=== PATIENT | male | born 1960 | race Hispanic/Latino ===

== ENCOUNTER 2018-10-15 08:15 | Inpatient (IN) | payer SELFPAY ==
[2018-10-15] MEDS ORDERED: Ondansetron ODT 4 MG TAB SL PRN (09:00)
[2018-10-15] MEDS ORDERED: Acetaminophen 325 MG TAB PO PRN (09:00)
[2018-10-15] MEDS ORDERED: Lactated Ringer's 1,000 ML IV SCH (09:00)
[2018-10-15] MEDS ORDERED: Ondansetron PF 4 MG/2 ML Vial IVP PRN (09:00)
[2018-10-15] MEDS ORDERED: Lorazepam 2 MG/ML VIAL ONE ×2 (09:36→12:01)
[2018-10-15] MEDS ORDERED: Multivitamins, Adult 10 ML, Folic Acid 1 MG, Thiamine HCl 100 MG in Dextrose 5 %-0.45 %... IV SCH (13:28)
[2018-10-15] MEDS ORDERED: Labetalol HCl 100 MG/20 ML VIAL SLOW IVP PRN (13:28)
[2018-10-15] MEDS ORDERED: Lorazepam 2 MG/ML VIAL SLOW IVP SCH (14:00)
[2018-10-15 14:08] LABS: Iron 57 ug/dL (65-175); Iron Binding Capacity, Total 379 mcg/dL (261-462)
[2018-10-15] MEDS ORDERED: Lorazepam 2 MG/ML VIAL SLOW IVP PRN ×2 (14:30→23:30)
[2018-10-15 14:55] LABS: Folate (Folic Acid) 5.1 ng/mL (7.0-31.4)
[2018-10-15] MEDS: Diltiazem 125 MG in Sodium Chloride 0.9% 100 ML IVPB SCH (17:45)
--- NOTE | 2018-10-15 18:59 | HP ---
PRIMARY CARE PHYSICIAN: None. CHIEF COMPLAINT: The patient has been passing out. HISTORY OF PRESENT ILLNESS: The history of present illness is taken from the patient's who is at the bedside as the patient is currently confused and unable to give a history. The patient's does not live with the patient as they are and she did not have a first-hand account of what is happening with the patient. According to her, the patient lives with friends and they called her after the patient was falling. She says they called her up and said, "oh he is falling again, he is falling again" and they brought him to the emergency room in [place] where apparently he had what appears to be a withdrawal seizure as he does have a history of alcoholism. He was also noted to be anemic and in atrial fibrillation with RVR and he was transfused and then sent over to our facility for further evaluation. The only other information they have is that he did admit that his chest was hurting a couple of days ago and that he was having trouble hearing and his vision was blurry, but otherwise no other history is obtainable. REVIEW OF THE SYSTEMS: Unobtainable as the patient is confused. PAST MEDICAL HISTORY: Heavy drinking and alcoholism. PAST SURGICAL HISTORY: No history of any previous surgeries. ALLERGIES: NO KNOWN DRUG ALLERGIES. SOCIAL HISTORY: He has a history of alcohol abuse. His says that he wakes up in the morning and starts drinking at 6:00 a.m. and drinks throughout the day. They are not really sure exactly what he drinks other than beer and some whiskey. Denies any alcohol use. He is , but his lives in a different city and they are . CODE STATUS: Full code. FAMILY HISTORY: Unknown. CURRENT MEDICATIONS: None. PHYSICAL EXAMINATION: GENERAL: The patient is a bit confused. He is disoriented. He appears slightly agitated. He is well developed and well nourished. VITAL SIGNS: Blood pressure was 105/72, heart rate 110, respiratory rate of 16, temperature was 100.0. HEENT: His pupils are equal, round, and reactive. Extraocular muscles are intact. Sclerae are anicteric, but pale. Throat, there is no erythema, no exudates. NECK: No adenopathy. No bruits. LUNGS: Clear to auscultation. There is no wheezing, no rales, and no rhonchi. CARDIOVASCULAR: He had a normal S1, S2. However, the heart rate is irregular, slightly tachycardic. ABDOMEN: Obese, it is soft. It is nontender and nondistended. Positive for bowel sounds. There is no rebound, no guarding, no organomegaly. EXTREMITIES: He has trace edema. There is no calf tenderness. NEUROLOGIC: Again, it is very difficult to assess. He is unable to follow commands. He is oriented to person only and he is moving all of his extremities. SKIN AND INTEGUMENT: He does have kind of bouncy appearance to the skin, 1+ edema, but there is no significant rash. LABORATORY DATA: When he initially presented at the emergency room in [place], his hemoglobin was 7.7, and his white blood cell count was 3.5, platelet count was 34,000. His sodium was 133, potassium 2.6, chloride is 94, CO2 is 18, BUN less than 4, creatinine 0.78, glucose is 185. Urinalysis was negative. Urine drug screen was also negative. His plasma alcohol level was 262 on presentation. He had a CT scan of the brain, which was negative for any acute intracranial process and this was also reviewed by me. He also had a chest x-ray, in which his heart size was normal. There were no infiltrates and no effusions. On his EKG, it was atrial fibrillation with rapid ventricular response. The heart rate is in the 130s. ASSESSMENT: This is a 58-year-old gentleman who was brought to the emergency room after he was falling at home. The full details of which are unobtainable as the was not present during that time and she had gotten the information secondhand. 1. Atrial fibrillation with rapid ventricular response. Currently, he is on a Cardizem drip. We will go ahead and continue that as well as obtain an echocardiogram and likely we will consult Cardiology. However, I suspect this is likely alcohol related. 2. Alcohol abuse with alcohol withdrawal. He will be placed on the ASE protocol as well as giving him some scheduled Ativan. Should his withdrawal symptoms become more severe, which is highly probable, he may need to be placed in the IMCU or the ICU and treated more aggressively. I did explain this to the family to make them aware. 3. Anemia. This appears to be a microcytic anemia. We will need to check for stool occult blood. Check iron studies as well as a B12 and folic acid. If this is nutritional, then we will supplement. However, if it appears to be a blood loss anemia, then GI consult may be warranted. For the time being, since it is a microcytic anemia, we will place him on a proton pump inhibitor. It is noted that there is no history of any evidence of any bleeding and he has no history of any known liver disease. Otherwise, he will be placed on thiamine and folic acid. Further recommendations are to follow. Job ID: [id number]
[2018-10-16] MEDS: Lorazepam 2 MG/ML VIAL SLOW IVP PRN ×21 (03:13→23:33)
[2018-10-16 05:10] LABS: Anion Gap 12 mmol/L (10-20); BUN (Urea Nitrogen) Less than 4 mg/dL (8.4-25.7); Calc. Creatinine Clearance 136 mL/min (70-130); Calcium 8.5 mg/dL (7.8-10.44); Carbon Dioxide 28 mmol/L (22-29); Chloride 94 mmol/L (98-107); Estimated GFR-MDRD Greater than 90; Glucose 91 mg/dL (70-105); Sodium 131 mmol/L (136-145)
[2018-10-16 05:13] LABS: Potassium 2.5 mmol/L (3.5-5.1)
[2018-10-16 05:27] LABS: #Lymphocytes 0.5 thou/uL (1.20-3.40); #Monocytes 0.4 thou/uL (0.11-0.59); #Neutrophils 2.7 thou/uL (1.40-6.50); %Eosinophils 0.7 % (0.0-10.0); %Lymphocytes 13.8 % (21.0-51.0); %Monocytes 11.6 % (0.0-10.0); %Neutrophils 72.9 % (42.0-75.0); Hemoglobin 9.3 g/dL (14.0-18.0); Hypochromia SLIGHT = 6-15 cells (100X) (0-5/hpf); MDiff Complete? YES; Mean Corpuscular HGB CONC 30.6 g/dL (32.0-36.0); Mean Corpuscular Hemoglobin 21.9 pg (27.0-31.0); Mean Corpuscular Volume 71.5 fL (78.0-98.0); Microcytosis SLIGHT = 6-15 cells (100X) (0-5/hpf); Platelet Count 33 thou/uL (130-400); Platelet Morphology Comment Appears Decreased; RBC Distribution Width 21.8 % (11.5-14.5); Red Blood Cell (RBC) Count 4.23 mill/uL (4.70-6.10); White Blood Cell (WBC) Count 3.6 thou/uL (4.8-10.8)
[2018-10-16] MEDS ORDERED: Magnesium 2 GM/NS 0.9% 100 ML 2 GM in Premix Bag 1 BAG IVPB PRN (06:01)
[2018-10-16] MEDS ORDERED: Potassium Chloride 20 MEQ TAB PO PRN (06:01)
[2018-10-16] MEDS ORDERED: Potassium Chloride 40 MEQ in Premix Bag 1 BAG IVPB PRN (06:01)
[2018-10-16] MEDS ORDERED: Potassium Chloride 40 MEQ in Sodium Chloride 0.9% 250 ML 250 ML IVPB PRN (06:01)
[2018-10-16] MEDS ORDERED: Potassium Phosphate 12 MMOL in Sodium Chloride 0.9% 250 ML 250 ML IV PRN (06:01)
[2018-10-16] MEDS ORDERED: CCU ELECTROLYTE REPLACEMENT PROTOCOL FS PRN (06:01)
[2018-10-16] MEDS ORDERED: Potassium Phosphate 15 MMOL in Sodium Chloride 0.9% 250 ML 250 ML IV PRN (06:01)
[2018-10-16] MEDS ORDERED: Potassium Phosphate 9 MMOL in Sodium Chloride 0.9% 100 ML IVPB PRN (06:01)
[2018-10-16] MEDS ORDERED: Magnesium Oxide 400 MG TAB PO PRN ×2 (06:01)
[2018-10-16] MEDS ORDERED: Potassium Chloride 40 MEQ in Sodium Chloride 0.9% 500 ML IVPB ONE (06:15)
[2018-10-16] MEDS ORDERED: Cyanocobalamin 1000 MCG/ML VIAL IM SCH (10:45)
[2018-10-16] MEDS ORDERED: Magnesium Sulfate 4 GM in Sodium Chloride 0.9% 250 ML 250 ML IVPB SCH (11:00)
[2018-10-16] MEDS: Sodium Chloride 0.9% 1,000 ML IV SCH (11:16)
[2018-10-16] MEDS: Pantoprazole 40 MG VIAL IVP SCH (11:17)
[2018-10-16] MEDS: Potassium Chloride 40 MEQ in Sodium Chloride 0.9% 250 ML 250 ML IVPB SCH ×3 (11:17→19:14)
[2018-10-16] MEDS: Diltiazem 125 MG in Sodium Chloride 0.9% 100 ML IVPB SCH (14:53)
--- NOTE | 2018-10-16 16:26 | PDOC.PN ---
- Subjective Encounter Start Date: 10/16/18 Encounter Start Time: 13:35 Mr. Napier was seen today in follow-up of Alcohol withdrawal and Atrial fibrillation. He is confused, and still has bouts of agitation. - Objective Resuscitation Status - Order Detail: 10/15/18 11:53 Resuscitation Status Routine Resuscitation Status: FULL: Full Resuscitation MAR Reviewed: Yes Vital Signs & Weight: Vital Signs (12 hours) Temp Pulse Resp BP Pulse Ox 10/16/18 16:00 98.1 F 96 18 102/68 100 10/16/18 11:56 98.5 F 94 18 101/65 100 10/16/18 08:00 98.4 F 132 H 20 114/72 100 Weight Weight 175 lb 0.047 oz Result Diagrams: 10/16/18 04:16 10/16/18 04:16 Phys Exam - Physical Examination HEENT: PERRLA Respiratory: no wheezing, no rales, no rhonchi, clear to auscultation bilateral Cardiovascular: RRR, no significant murmur, no rub Gastrointestinal: soft, non-tender, no distention, positive bowel sounds Musculoskeletal: no edema, pulses present Dx/Plan (1) Atrial fibrillation Code(s): I48.91 - UNSPECIFIED ATRIAL FIBRILLATION Status: Acute (2) Alcohol withdrawal Code(s): F10.239 - ALCOHOL DEPENDENCE WITH WITHDRAWAL, UNSPECIFIED Status: Acute (3) Iron deficiency Code(s): E61.1 - IRON DEFICIENCY Status: Acute (4) Anemia Code(s): D64.9 - ANEMIA, UNSPECIFIED Status: Acute (5) Folate deficiency anemia Code(s): D52.9 - FOLATE DEFICIENCY ANEMIA, UNSPECIFIED Status: Acute (6) Hypokalemia Code(s): E87.6 - HYPOKALEMIA Status: Acute (7) Alcohol abuse Code(s): F10.10 - ALCOHOL ABUSE, UNCOMPLICATED Status: Chronic - Plan * AFIB- this is likely related to his alcohol abuse- he is now in sinus- will continue the Cardizem drip for now * Echo results noted * Await Cardiology input * Anemia- this is likely nutritional with iron and folate deficiency- replace, and await stool for occult blood * Alcohol withdrawal- continue Ativan as needed * Hypokalemia- and Hypomagnesemia- replace
--- NOTE | 2018-10-16 16:54 | CON ---
DATE OF CONSULTATION: 10/16/2018 SERVICE: Pulmonary Medicine. HISTORY OF PRESENT ILLNESS: The patient is a 58-year-old male with past medical history significant for heavy alcohol consumption. He is in his usual state of health until about 3 days prior to admission. He started having some onset of chest discomfort and syncopal events. He stopped drinking alcohol. Ultimately , he had some seizures and presented to the emergency department. He was given some Ativan and tucked into the IMCU. He was found to be in atrial fibrillation with a rapid rate. As such, a Cardizem drip was initiated. He has received multiple doses of Ativan. The 2-hour dosing, we are not keeping him. We have intensified this. He cannot provide me any additional elements of the history. He has a coarse tremor, and is speaking in nonsensical terms. He does not speak any Lithuanian and is primarily Burkinan speaking. There are no reports of fevers, chills, or sick contacts recently. He has not had any nausea, vomiting, or diarrhea that we are aware of. He does not have a cough or sputum production. PAST MEDICAL HISTORY: 1. Alcoholism. 2. Atrial fibrillation, paroxysmal. 3. History of seizure, in the setting of alcohol withdrawal. PAST SURGICAL HISTORY: None that we are aware of. SOCIAL HISTORY: Heavy alcohol abuse is present. He drinks beer and whiskey. No tobacco or illicit drug use is noted. He has no exposure to chemicals, dust, asbestos, or tuberculosis that we are aware of. ALLERGIES: NO KNOWN DRUG ALLERGIES. MEDICATIONS: List of his inpatient medications was reviewed and modified. FAMILY HISTORY: Noncontributory. REVIEW OF SYSTEMS: This cannot be obtained because of encephalopathy. PHYSICAL EXAMINATION: VITAL SIGNS: Afebrile, pulse 132, blood pressure 114/72, respirations 20, and saturation 100% on room air. GENERAL: The patient is awake. He is confused. He was previously agitated, but is now minimally sedated. HEENT: Normocephalic and atraumatic. Sclerae white. Conjunctivae pink. Oral mucosa is moist without lesions. LUNGS: Decent air entry. There is no prolonged expiratory phase or wheezing present. No rhonchi or crackles are appreciated. HEART: Tachycardiac. Irregular. ABDOMEN: Soft, nontender, and nondistended. Bowel sounds are positive. MUSCULOSKELETAL: No cyanosis or clubbing. No pitting in the bilateral lower extremities. NEUROLOGIC: Grossly nonfocal. LABORATORY DATA: WBC 3.6, hemoglobin 9.3, platelets 33,000. MCV is 72. Potassium 2.5. Basic metabolic profile is otherwise unremarkable. Magnesium 1.1. Iron is low, and folate is low. B12 falls within the lower limits of normal. Plasma alcohol level is negative. IMAGING STUDIES: 1. Echocardiogram demonstrates underlying atrial fibrillation with normal ejection fraction. Diastology cannot be evaluated because of underlying rhythm. 2. CT of the brain demonstrates no acute intracranial abnormality. 3. Chest x-ray demonstrates no acute cardiothoracic abnormality. ASSESSMENT: 1. Delirium tremens. 2. Seizure secondary to withdrawal from alcohol. 3. Syncope. 4. Chest pain. DISCUSSION AND PLAN: We will check a single troponin. I will replace magnesium and potassium. We will trend both of those levels as well as a phosphorus tomorrow morning. Folate replacement will be initiated. Lactate to be repeated. Pulmonary/Critical Care will continue to follow along with the patient, will need to remain in this location. We are going to intensify Ativan doses. If this fails to hold him, we will move to the ICU and consider him for Precedex infusion. Failing that, he will require intubation. Pulmonary/Critical Care will continue to follow closely. 70 minutes have been devoted to this patient in various activities. I personally reviewed all imaging studies and laboratory data noted within this document. For fifty percent of this time, I was interacting with the patient at the bedside or coordinating care with the care team. For the remainder of the time I was immediately available to the patient in the hospital unit. Job ID: [id number] [facility]
[2018-10-17] MEDS: Lorazepam 2 MG/ML VIAL SLOW IVP PRN ×10 (00:06→16:30)
[2018-10-17] MEDS: Sodium Chloride 0.9% 1,000 ML IV SCH ×3 (01:37→16:43)
[2018-10-17 05:04] LABS: Lactic Acid 1.5 mmol/L (0.5-2.2)
[2018-10-17 05:07] LABS: Anion Gap 14 mmol/L (10-20); BUN (Urea Nitrogen) Less than 4 mg/dL (8.4-25.7); Calc. Creatinine Clearance 145 mL/min (70-130); Calcium 8.6 mg/dL (7.8-10.44); Carbon Dioxide 22 mmol/L (22-29); Chloride 100 mmol/L (98-107); Estimated GFR-MDRD Greater than 90; Glucose 91 mg/dL (70-105); Magnesium 1.9 mg/dL (1.6-2.6); Potassium 3.4 mmol/L (3.5-5.1); Sodium 133 mmol/L (136-145)
[2018-10-17 05:12] LABS: Troponin I 0.015 ng/mL (< 0.028)
[2018-10-17 05:14] LABS: Phosphorus 1.6 mg/dL (2.3-4.7)
[2018-10-17] MEDS ORDERED: Potassium Phosphate 15 MMOL in Sodium Chloride 0.9% 250 ML 250 ML IVPB SCH (07:00)
[2018-10-17] MEDS: Diltiazem 125 MG in Sodium Chloride 0.9% 100 ML IVPB SCH ×2 (07:41→23:39)
[2018-10-17] MEDS: Pantoprazole 40 MG VIAL IVP SCH (09:15)
[2018-10-17] MEDS: Folic Acid 1 MG TAB PO SCH ×2 (09:15→09:20)
[2018-10-17] MEDS: Cyanocobalamin (Vitamin B-12) 1,000 MCG TAB PO SCH ×2 (09:15→09:21)
[2018-10-17 09:27] LABS: #Lymphocytes 0.8 thou/uL (1.20-3.40); #Monocytes 0.6 thou/uL (0.11-0.59); #Neutrophils 6.2 thou/uL (1.40-6.50); %Basophils 0.3 % (0.0-1.0); %Eosinophils 0.3 % (0.0-10.0); %Lymphocytes 10.5 % (21.0-51.0); %Monocytes 7.5 % (0.0-10.0); %Neutrophils 81.4 % (42.0-75.0); Hemoglobin 9.7 g/dL (14.0-18.0); Mean Corpuscular HGB CONC 28.7 g/dL (32.0-36.0); Mean Corpuscular Hemoglobin 21.2 pg (27.0-31.0); Mean Corpuscular Volume 73.7 fL (78.0-98.0); Mean Platelet Volume 10.4 fL (7.4-10.4); Platelet Count 40 thou/uL (130-400); RBC Distribution Width 22.2 % (11.5-14.5); Red Blood Cell (RBC) Count 4.59 mill/uL (4.70-6.10); White Blood Cell (WBC) Count 7.6 thou/uL (4.8-10.8)
[2018-10-17 10:05] LABS: Hypochromia MODERATE=16-30 cells (100X) (0-5/hpf); MDiff Complete? YES; Microcytosis SLIGHT = 6-15 cells (100X) (0-5/hpf); Platelet Morphology Comment Appears Decreased; Polychromasia MODERATE = 3-4 cells (100X) (0-2/hpf)
[2018-10-17] MEDS ORDERED: Lorazepam 2 MG/ML VIAL SLOW IVP PRN ×2 (10:28→10:29)
[2018-10-17] MEDS: Lorazepam 2 MG/ML VIAL SLOW IVP SCH ×4 (11:02→23:39)
--- NOTE | 2018-10-17 16:26 | PDOC.PN ---
- Subjective Encounter Start Date: 10/17/18 Encounter Start Time: 13:25 Mr. Napier appears less agitated and shaky. - Objective Resuscitation Status - Order Detail: 10/15/18 11:53 Resuscitation Status Routine Resuscitation Status: FULL: Full Resuscitation MAR Reviewed: Yes Vital Signs & Weight: Vital Signs (12 hours) Temp Pulse Resp BP Pulse Ox 10/17/18 15:28 98.1 F 100 18 125/80 100 10/17/18 10:49 98.0 F 90 18 121/85 100 10/17/18 08:00 100 10/17/18 07:25 97.0 F L 82 18 107/74 100 Weight Weight 175 lb 0.047 oz I&O: 10/16/18 10/17/18 10/18/18 06:59 06:59 06:59 Intake Total 1521 Balance 1521 Result Diagrams: 10/17/18 04:09 10/17/18 04:09 Phys Exam - Physical Examination HEENT: PERRLA, sclera anicteric Respiratory: no wheezing, no rales, no rhonchi, clear to auscultation bilateral Cardiovascular: RRR, no significant murmur, no rub Gastrointestinal: soft, non-tender, no distention, positive bowel sounds Musculoskeletal: no edema, pulses present Neurological: moves all 4 limbs confused Dx/Plan (1) Atrial fibrillation Code(s): I48.91 - UNSPECIFIED ATRIAL FIBRILLATION Status: Acute (2) Alcohol withdrawal Code(s): F10.239 - ALCOHOL DEPENDENCE WITH WITHDRAWAL, UNSPECIFIED Status: Acute (3) Iron deficiency Code(s): E61.1 - IRON DEFICIENCY Status: Acute (4) Anemia Code(s): D64.9 - ANEMIA, UNSPECIFIED Status: Acute (5) Folate deficiency anemia Code(s): D52.9 - FOLATE DEFICIENCY ANEMIA, UNSPECIFIED Status: Acute (6) Hypokalemia Code(s): E87.6 - HYPOKALEMIA Status: Acute (7) Alcohol abuse Code(s): F10.10 - ALCOHOL ABUSE, UNCOMPLICATED Status: Chronic - Plan * Atrial Fibrillation- he continues in sinus * Alcohol withdrawal- slowly improving- agree with Ativan jason * Anemia- multi-factorial - continue folic acid and vitamin B supplementation, and will add iron * Advance diet as he is able to tolerate * Continue electrolyte replacement .
--- NOTE | 2018-10-17 16:39 | PRG ---
DATE OF SERVICE: 10/17/2018 SERVICE: Pulmonary Medicine. INTERVAL HISTORY: The patient required 15 mg of Ativan over the last 24 hours in order to maintain his calm demeanor. That being said, his heart rate was much improved and his blood pressure is much more stable. His tremors are still present, but less severe. His is suggesting his mentation is actually perked up very nicely. He is still not back to baseline as of now. He cannot provide any additional elements of the history. He is cantankerously not following any significant commands, but he has been noted to move everything. PHYSICAL EXAMINATION: VITAL SIGNS: Afebrile, pulse 100, blood pressure 125/80, respirations 18, and saturation 100% on room air. GENERAL: The patient is awake and alert, in no apparent distress. LUNGS: Excellent air entry without prolonged expiratory phase or wheezing. HEART: Normal rate regular. ABDOMEN: Soft, nontender, and nondistended. Bowel sounds are positive. MUSCULOSKELETAL: No cyanosis or clubbing. No pitting edema in the bilateral lower extremities. NEUROLOGIC: Grossly nonfocal. LABORATORY DATA: WBC 7.6, hemoglobin 9.7, and platelets 40. Sodium 133 and potassium 3.4. Basic metabolic profile is otherwise unremarkable. Phosphorus is 1.6, magnesium 1.9, lactate is 1.5, and troponin 0.015. ASSESSMENT: 1. Delirium tremens. 2. Seizure, secondary to withdrawal from alcohol. 3. Syncope. 4. Chest pain. 5. Atrial fibrillation with RVR, returned to normal sinus rhythm. DISCUSSION AND PLAN: The patient had 50 mg of Ativan in the last 24 hours. We will split that in a half and start Ativan taper over the next several days. His alcohol symptomatology evaluation has improved dramatically. We will leave in the IMCU for an additional 24 hours. We will continue p.r.n. Ativan if necessary. If he does not require much of the p.r.n. medications, he can be considered for transition to the floor in the morning. Pulmonary/Critical Care will continue to follow closely. Job ID: [id number] [facility]
[2018-10-18] MEDS ORDERED: diphenhydrAMINE 50 MG/ML VIAL IVP SCH (01:15)
[2018-10-18] MEDS: Lorazepam 2 MG/ML VIAL SLOW IVP SCH ×6 (04:59→23:35)
[2018-10-18 05:31] LABS: Anion Gap 12 mmol/L (10-20); BUN (Urea Nitrogen) 4 mg/dL (8.4-25.7); Calc. Creatinine Clearance 145 mL/min (70-130); Calcium 9.4 mg/dL (7.8-10.44); Carbon Dioxide 26 mmol/L (22-29); Chloride 98 mmol/L (98-107); Estimated GFR-MDRD Greater than 90; Glucose 86 mg/dL (70-105); Potassium 3.1 mmol/L (3.5-5.1); Sodium 133 mmol/L (136-145)
[2018-10-18 05:34] LABS: Phosphorus 2.9 mg/dL (2.3-4.7)
[2018-10-18] MEDS: Ferrous Sulfate 325 MG TAB PO SCH (07:48)
[2018-10-18] MEDS: Folic Acid 1 MG TAB PO SCH (07:48)
[2018-10-18] MEDS: Cyanocobalamin (Vitamin B-12) 1,000 MCG TAB PO SCH (07:48)
[2018-10-18] MEDS: Pantoprazole 40 MG VIAL IVP SCH (07:51)
--- NOTE | 2018-10-18 08:47 | PDOC.PN ---
- Subjective Encounter Start Date: 10/18/18 Encounter Start Time: 10:59 Mr. Karthikeyan Najera was seen today in follow-up of Alcohol withdrawal, and atrial fibrillation. He continues to be calmer, but still has some confusuion, and periods of agitation. - Objective Resuscitation Status - Order Detail: 10/15/18 11:53 Resuscitation Status Routine Resuscitation Status: FULL: Full Resuscitation MAR Reviewed: Yes Vital Signs & Weight: Vital Signs (12 hours) Temp Pulse Resp BP Pulse Ox 10/18/18 07:38 100 10/18/18 07:24 97.9 F 84 17 123/80 100 10/18/18 04:00 98.0 F 79 14 124/80 100 10/17/18 23:55 98.7 F 96 20 123/87 100 Weight Weight 159 lb 4.8 oz I&O: 10/17/18 10/18/18 10/19/18 06:59 06:59 06:59 Intake Total 1521 1898.7 Balance 1521 1898.7 Result Diagrams: 10/17/18 04:09 10/18/18 04:33 Phys Exam - Physical Examination HEENT: PERRLA Respiratory: no wheezing, no rales, no rhonchi, clear to auscultation bilateral Cardiovascular: RRR, no significant murmur, no rub Gastrointestinal: soft, non-tender, no distention, positive bowel sounds Musculoskeletal: no edema Dx/Plan (1) Atrial fibrillation Code(s): I48.91 - UNSPECIFIED ATRIAL FIBRILLATION Status: Acute (2) Alcohol withdrawal Code(s): F10.239 - ALCOHOL DEPENDENCE WITH WITHDRAWAL, UNSPECIFIED Status: Acute (3) Iron deficiency Code(s): E61.1 - IRON DEFICIENCY Status: Acute (4) Anemia Code(s): D64.9 - ANEMIA, UNSPECIFIED Status: Acute (5) Folate deficiency anemia Code(s): D52.9 - FOLATE DEFICIENCY ANEMIA, UNSPECIFIED Status: Acute (6) Hypokalemia Code(s): E87.6 - HYPOKALEMIA Status: Acute (7) Alcohol abuse Code(s): F10.10 - ALCOHOL ABUSE, UNCOMPLICATED Status: Chronic - Plan * Atrial Fibrillation- he is now in sinus rhythm, and off the cardizem drip * Alcohol withdrawal- continue Ativan jason * Nutrition- continue thiamin, folic acid, and iron supplement, and will add nutritional supplements for caloric support * Continue to replace electrolyes .
[2018-10-18] MEDS ORDERED: Lorazepam 2 MG/ML VIAL SLOW IVP PRN (10:29)
[2018-10-18] MEDS: Sodium Chloride 0.9% 1,000 ML IV SCH (11:25)
[2018-10-18] MEDS: Lorazepam 2 MG/ML VIAL SLOW IVP PRN (12:59)
[2018-10-18] MEDS ORDERED: Potassium Chloride 20 MEQ TAB PO SCH (14:15)
--- NOTE | 2018-10-18 14:43 | PRG ---
DATE OF SERVICE: 10/18/2018 SERVICE: Pulmonary Medicine. INTERVAL HISTORY: The patient is really doing well from a respiratory standpoint. He has not required any significant doses of p.r.n. Ativan over the last 24 hours. One dose of Ativan was actually held because he was sleeping. Otherwise, there is no interval change to his condition. He did transition back into a normal sinus rhythm. PHYSICAL EXAMINATION: VITAL SIGNS: Afebrile, pulse 55, blood pressure 136/49, respirations 18, and saturation 92% on 1.5 L nasal cannula. GENERAL: The patient is awake and alert, in no apparent distress. LUNGS: Decent air entry. There is no prolonged expiratory phase or wheezing present. HEART: Normal rate, regular. ABDOMEN: Soft, nontender, and nondistended. Bowel sounds are positive. MUSCULOSKELETAL: No cyanosis or clubbing. No pitting in the bilateral lower extremities. NEUROLOGIC: Grossly nonfocal. LABORATORY DATA: Potassium 3.1 and sodium 133. Basic metabolic profile is otherwise unremarkable. Creatinine and BUN are both stable. Phosphorus is 2.9 and has returned to the normal limits. Plasma alcohol level is less than 10. ASSESSMENT: 1. Delirium tremens, improving. 2. Seizure, secondary to withdrawal from alcohol. 3. Atrial fibrillation with rapid ventricular response, returned to sinus rhythm. DISCUSSION AND PLAN: I am going to discontinue the Cardizem drip. We will replace the patient's potassium. He can be transitioned to the medical unit. We will continue our Ativan taper. ASE will be followed through time. If he has a significant decline in function, he may need to be transitioned back to the ICU for initiation of Precedex drip, but for the last 24 hours, he has been doing well on his Ativan taper. Job ID: [id number] [facility]
[2018-10-18] MEDS ORDERED: Potassium Chloride 40 MEQ in Sodium Chloride 0.9% 250 ML 250 ML IVPB SCH (15:00)
[2018-10-19] MEDS: Lorazepam 2 MG/ML VIAL SLOW IVP SCH ×4 (03:16→18:16)
[2018-10-19 07:23] LABS: Anion Gap 14 mmol/L (10-20); BUN (Urea Nitrogen) 8 mg/dL (8.4-25.7); Calc. Creatinine Clearance 134 mL/min (70-130); Calcium 9.2 mg/dL (7.8-10.44); Carbon Dioxide 22 mmol/L (22-29); Chloride 98 mmol/L (98-107); Estimated GFR-MDRD Greater than 90; Glucose 83 mg/dL (70-105); Potassium 3.1 mmol/L (3.5-5.1); Sodium 131 mmol/L (136-145)
[2018-10-19 08:11] LABS: Band 10 % (5-11); Eosinophils 2 % (0-10); Hemoglobin 9.5 g/dL (14.0-18.0); Lymphocytes 18 % (21-51); MDiff Complete? YES; Mean Corpuscular HGB CONC 30.4 g/dL (32.0-36.0); Mean Corpuscular Hemoglobin 22.6 pg (27.0-31.0); Mean Corpuscular Volume 74.6 fL (78.0-98.0); Mean Platelet Volume 6.6 fL (7.4-10.4); Monocytes 17 % (0-10); Neutrophil 52 % (42-75); Platelet Count 96 thou/uL (130-400); Platelet Morphology Comment Appears Decreased; Red Blood Cell (RBC) Count 4.18 mill/uL (4.70-6.10); White Blood Cell (WBC) Count 5.1 thou/uL (4.8-10.8)
[2018-10-19] MEDS: Ferrous Sulfate 325 MG TAB PO SCH (09:45)
[2018-10-19] MEDS: Sodium Chloride 0.9% 1,000 ML IV SCH (09:45)
[2018-10-19] MEDS: Pantoprazole 40 MG VIAL IVP SCH (09:45)
[2018-10-19] MEDS ORDERED: Lorazepam 2 MG/ML VIAL SLOW IVP PRN (10:29)
[2018-10-19] MEDS: Folic Acid 1 MG TAB PO SCH (11:33)
[2018-10-19] MEDS: Cyanocobalamin (Vitamin B-12) 1,000 MCG TAB PO SCH (11:33)
[2018-10-19] MEDS ORDERED: Potassium Chloride 20 MEQ TAB PO SCH (12:00)
[2018-10-19] MEDS ORDERED: Magnesium Sulfate 4 GM in Sodium Chloride 0.9% 250 ML 250 ML IVPB SCH (12:30)
--- NOTE | 2018-10-19 13:28 | EKG ---
Test Reason : Blood Pressure : / mmHG Vent. Rate : 114 BPM Atrial Rate : 105 BPM P-R Int : 000 ms QRS Dur : 088 ms QT Int : 338 ms P-R-T Axes : 000 -02 053 degrees QTc Int : 465 ms Atrial fibrillation with rapid ventricular response Nonspecific ST and T wave abnormality , probably digitalis effect Abnormal ECG Confirmed by HAYES DURHAM ([id number]), scientific editor CHIDI SANFORD ([id number]) on 10/19/2018 1:28:26 PM Referred By: Confirmed By:HAYES DURHAM
--- NOTE | 2018-10-19 21:06 | PDOC.PN ---
- Subjective Encounter Start Date: 10/19/18 Encounter Start Time: 12:30 -: non-verbal Patient seen and examined for Alcohol withdrawal. Took PO meds earlier. Follows commands to some extent. No overnight events - Objective Resuscitation Status - Order Detail: 10/15/18 11:53 Resuscitation Status Routine Resuscitation Status: FULL: Full Resuscitation MAR Reviewed: Yes Vital Signs & Weight: Vital Signs (12 hours) Temp Pulse Resp BP BP Pulse Ox 10/19/18 19:53 98.6 F 91 22 H 125/79 100 10/19/18 19:30 125/79 10/19/18 15:35 98.0 F 93 17 111/75 100 10/19/18 11:04 98.0 F 97 16 121/88 99 Weight Weight 159 lb 4.8 oz I&O: 10/18/18 10/19/18 10/20/18 06:59 06:59 06:59 Intake Total 1898.7 600 1650 Balance 1898.7 600 1650 Result Diagrams: 10/20/18 05:16 10/20/18 05:16 Phys Exam - Physical Examination Constitutional: NAD Respiratory: no wheezing, no rhonchi Cardiovascular: RRR, no rub Gastrointestinal: soft, positive bowel sounds Neurological: moves all 4 limbs (with gen tremors) Dx/Plan (1) Alcohol withdrawal Code(s): F10.239 - ALCOHOL DEPENDENCE WITH WITHDRAWAL, UNSPECIFIED Status: Acute Qualifiers: Complication of substance-induced condition: with delirium Qualified Code(s ): F10.231 - Alcohol dependence with withdrawal delirium Comment: and seizures (2) Hypomagnesemia Code(s): E83.42 - HYPOMAGNESEMIA Status: Acute (3) Anemia Code(s): D64.9 - ANEMIA, UNSPECIFIED Status: Acute Comment: s/p 2 units PRBC this admission (4) Atrial fibrillation Code(s): I48.91 - UNSPECIFIED ATRIAL FIBRILLATION Status: Acute Comment: with RVR (5) Hypokalemia Code(s): E87.6 - HYPOKALEMIA Status: Acute (6) Folic acid deficiency Code(s): E53.8 - DEFICIENCY OF OTHER SPECIFIED B GROUP VITAMINS Status: Chronic (7) Other issues per previous notes - Plan cont current plan of care, respiratory therapy, DVT proph w/SCDs Add PPI -: Replace electrolytes -: Cont current meds as below Review of Systems - Review of Systems Other: Cannot obtain due to current mentation. - Medications/Allergies Allergies/Adverse Reactions: Allergies Allergy/AdvReac Type Severity Reaction Status Date / Time No Known Drug Allergies Allergy Verified 10/15/18 14:34 Medications: Current Medications Cyanocobalamin (Vitamin B-12) 1,000 mcg PO DAILY [facility] Last Admin: 10/19/18 11:33 Dose: 1,000 mcg Ferrous Sulfate (Feosol) 325 mg PO QAM-WM [facility] Last Admin: 10/19/18 09:45 Dose: Not Given Folic Acid (Folvite) 1 mg PO DAILY [facility] Last Admin: 10/19/18 11:33 Dose: 1 mg Sodium Chloride (Normal Saline 0.9%) 1,000 mls @ 50 mls/hr IV .Q20H [facility] Last Admin: 10/19/18 09:45 Dose: 1,000 mls Labetalol HCl (Normodyne) 20 mg SLOW IVP Q4H PRN PRN Reason: SBP > 180 and HR >/= 70 Lorazepam (Ativan) 2 mg SLOW IVP Q15M PRN PRN Reason: .AGITATION Last Admin: 10/18/18 12:59 Dose: 2 mg Lorazepam (Ativan) 2 mg SLOW IVP Q8H [facility] Stop: 10/20/18 03:01 Last Admin: 10/19/18 18:16 Dose: 2 mg Pantoprazole Sodium (Protonix) 40 mg IVP DAILY [facility] Last Admin: 10/19/18 09:45 Dose: 40 mg Sodium Chloride (Flush - Normal Saline) 10 ml IVF Q12HR [facility] Last Admin: 10/19/18 20:23 Dose: 10 ml Sodium Chloride (Flush - Normal Saline) 10 ml IVF PRN PRN PRN Reason: Saline Flush Last Admin: 10/18/18 07:51 Dose: 10 ml Thiamine HCl (Thiamine) 100 mg PO DAILY [facility] Last Admin: 10/19/18 11:32 Dose: 100 mg
--- NOTE | 2018-10-19 22:51 | PRG ---
DATE OF SERVICE: 10/19/2018 SUBJECTIVE: Mr. Karthikeyan Najera is calm. He is not tachycardic. OBJECTIVE: GENERAL: He is in no distress. Vital Signs: He is afebrile. Heart rate in the 90s, blood pressure 125/79, respiratory rate is 20, oximetry is 100%. Multiple family members in the room. When I evaluated, I answered all their questions. His oximetry is 99% to 100% on room air. LUNGS: Clear. HEART: Regular rhythm. ABDOMEN: Soft and nontender. EXTREMITIES: No clubbing, cyanosis, or edema. LABORATORY DATA: White count 5.1, hemoglobin 9.5, platelets 96,000. Sodium 131, potassium 3.1, chloride 98, bicarb 22, BUN 8, and creatinine 0.63. IMPRESSION: Status post alcohol withdrawal, clinically stable. I had a long discussion with family about his alcohol use. His family says he drinks beer from sun up to . It has been explained that it is very likely that he will have a relapse of his alcohol abuse. I have suggested consideration of alcoholics anonymous. Family said they will consider this and apparently he has stopped drinking in the past and then gradually restarted and build up to the same previous levels. He tolerated an incredible room amount of benzodiazepines during his withdrawal with no respiratory depression. He is clinically stable at this time with no signs or symptoms of infection. We will continue to monitor him. Job ID: [id number]
[2018-10-20] MEDS: Lorazepam 2 MG/ML VIAL SLOW IVP SCH (04:13)
[2018-10-20 05:46] LABS: Anion Gap 14 mmol/L (10-20); BUN (Urea Nitrogen) 8 mg/dL (8.4-25.7); Calc. Creatinine Clearance 136 mL/min (70-130); Calcium 9.1 mg/dL (7.8-10.44); Carbon Dioxide 20 mmol/L (22-29); Chloride 101 mmol/L (98-107); Estimated GFR-MDRD Greater than 90; Glucose 88 mg/dL (70-105); Magnesium 1.7 mg/dL (1.6-2.6); Potassium 3.7 mmol/L (3.5-5.1); Sodium 131 mmol/L (136-145)
[2018-10-20 05:47] LABS: Phosphorus 3.9 mg/dL (2.3-4.7)
[2018-10-20] MEDS: Sodium Chloride 0.9% 1,000 ML IV SCH (05:57)
[2018-10-20 08:25] LABS: Anisocytosis SLIGHT = 6-15 cells (100X) (0-5/hpf); Band 5 % (5-11); Eosinophils 3 % (0-10); Hemoglobin 9.5 g/dL (14.0-18.0); Hypochromia SLIGHT = 6-15 cells (100X) (0-5/hpf); Lymphocytes 23 % (21-51); MDiff Complete? YES; Mean Corpuscular HGB CONC 29.9 g/dL (32.0-36.0); Mean Corpuscular Hemoglobin 22.6 pg (27.0-31.0); Mean Corpuscular Volume 75.6 fL (78.0-98.0); Mean Platelet Volume 7.4 fL (7.4-10.4); Monocytes 19 % (0-10); Neutrophil 50 % (42-75); Platelet Count 120 thou/uL (130-400); Platelet Morphology Comment Appears Decreased; RBC Distribution Width 23.5 % (11.5-14.5); Red Blood Cell (RBC) Count 4.23 mill/uL (4.70-6.10); Target Cells SLIGHT = 2-5 cells (100X) (0-1/hpf); White Blood Cell (WBC) Count 4.1 thou/uL (4.8-10.8)
[2018-10-20] MEDS: Folic Acid 1 MG TAB PO SCH (09:45)
[2018-10-20] MEDS: Ferrous Sulfate 325 MG TAB PO SCH (09:45)
[2018-10-20] MEDS: Cyanocobalamin (Vitamin B-12) 1,000 MCG TAB PO SCH (09:45)
[2018-10-20] MEDS: Pantoprazole 40 MG VIAL IVP SCH (09:46)
[2018-10-20] MEDS: Lorazepam 2 MG/ML VIAL SLOW IVP PRN ×2 (16:07→22:24)
--- NOTE | 2018-10-20 18:17 | PDOC.PN ---
- Subjective Encounter Start Date: 10/20/18 Encounter Start Time: 18:15 Subjective: Seen and examined lethargic and deconditioned - Objective Resuscitation Status - Order Detail: 10/15/18 11:53 Resuscitation Status Routine Resuscitation Status: FULL: Full Resuscitation Vital Signs & Weight: Vital Signs (12 hours) Temp Pulse Resp BP BP Pulse Ox 10/20/18 15:41 98.5 F 100 20 117/76 100 10/20/18 10:52 98.2 F 90 20 136/83 100 10/20/18 08:00 114/74 10/20/18 07:30 97.7 F 78 20 114/74 100 Weight Weight 162 lb 9 oz I&O: 10/19/18 10/20/18 10/21/18 06:59 06:59 06:59 Intake Total 600 2450 Balance 600 2450 Result Diagrams: 10/20/18 05:16 10/20/18 05:16 Phys Exam - Physical Examination Constitutional: NAD HEENT: PERRLA, moist MMs, sclera anicteric, TM's clear Neck: no nodes, no JVD, supple, full ROM Respiratory: no wheezing, no rales, no rhonchi, clear to auscultation bilateral Cardiovascular: RRR, no significant murmur, no rub Gastrointestinal: soft, non-tender, no distention, positive bowel sounds Musculoskeletal: no edema, pulses present Dx/Plan (1) Alcohol withdrawal Code(s): F10.239 - ALCOHOL DEPENDENCE WITH WITHDRAWAL, UNSPECIFIED Status: Acute Qualifiers: Complication of substance-induced condition: with delirium Qualified Code(s ): F10.231 - Alcohol dependence with withdrawal delirium Comment: and seizures (2) Anemia Code(s): D64.9 - ANEMIA, UNSPECIFIED Status: Acute Comment: s/p 2 units PRBC this admission (3) Atrial fibrillation Code(s): I48.91 - UNSPECIFIED ATRIAL FIBRILLATION Status: Acute Comment: with RVR (4) Folate deficiency anemia Code(s): D52.9 - FOLATE DEFICIENCY ANEMIA, UNSPECIFIED Status: Acute (5) Hypokalemia Code(s): E87.6 - HYPOKALEMIA Status: Acute (6) Hypomagnesemia Code(s): E83.42 - HYPOMAGNESEMIA Status: Acute (7) Iron deficiency Code(s): E61.1 - IRON DEFICIENCY Status: Acute (8) Alcohol abuse Code(s): F10.10 - ALCOHOL ABUSE, UNCOMPLICATED Status: Chronic - Plan PT/OT, social media marketer Counselling -: Dispo planning * .
[2018-10-21] MEDS: Lorazepam 2 MG/ML VIAL SLOW IVP PRN ×7 (00:13→18:10)
[2018-10-21] MEDS: Sodium Chloride 0.9% 1,000 ML IV SCH ×2 (04:30→21:20)
[2018-10-21 05:18] LABS: Anion Gap 17 mmol/L (10-20); BUN (Urea Nitrogen) 6 mg/dL (8.4-25.7); Calc. Creatinine Clearance 125 mL/min (70-130); Calcium 9.6 mg/dL (7.8-10.44); Carbon Dioxide 21 mmol/L (22-29); Chloride 97 mmol/L (98-107); Estimated GFR-MDRD Greater than 90; Glucose 111 mg/dL (70-105); Sodium 132 mmol/L (136-145)
[2018-10-21 05:31] LABS: Hemoglobin 9.8 g/dL (14.0-18.0); Mean Corpuscular HGB CONC 30.2 g/dL (32.0-36.0); Mean Corpuscular Hemoglobin 22.6 pg (27.0-31.0); Mean Corpuscular Volume 74.6 fL (78.0-98.0); Mean Platelet Volume 5.5 fL (7.4-10.4); Platelet Count 155 thou/uL (130-400); RBC Distribution Width 23.1 % (11.5-14.5); Red Blood Cell (RBC) Count 4.36 mill/uL (4.70-6.10); White Blood Cell (WBC) Count 6.4 thou/uL (4.8-10.8)
[2018-10-21 05:32] LABS: Anisocytosis SLIGHT = 6-15 cells (100X) (0-5/hpf); Band 2 % (5-11); Hypochromia SLIGHT = 6-15 cells (100X) (0-5/hpf); Lymphocytes 15 % (21-51); MDiff Complete? YES; Microcytosis SLIGHT = 6-15 cells (100X) (0-5/hpf); Monocytes 19 % (0-10); Neutrophil 64 % (42-75)
[2018-10-21] MEDS: Ferrous Sulfate 325 MG TAB PO SCH (10:13)
[2018-10-21] MEDS: Folic Acid 1 MG TAB PO SCH (10:13)
[2018-10-21] MEDS: Cyanocobalamin (Vitamin B-12) 1,000 MCG TAB PO SCH (10:13)
[2018-10-21] MEDS ORDERED: Potassium Chloride 40 MEQ in Premix Bag 1 BAG IVPB SCH (10:45)
--- NOTE | 2018-10-21 11:00 | PRG ---
DATE OF SERVICE: 10/21/2018 SERVICE: Pulmonary Medicine. INTERVAL HISTORY: The patient is doing fine from respiratory standpoint. Breathing comfortably. He is somnolent. He wakes up with a little bit of stimulation. He cannot provide any additional elements of the history. He remains confused. He is only speaking in Upper Sorbian. Apparently, he does understand, and cannot speak Panamanian, but has not done so since he has been in the hospital. Last night, he got a little agitated. He got 8 mg of Ativan in a 2 hour period. Since then, he has been sleepy. PHYSICAL EXAMINATION: VITAL SIGNS: Afebrile, pulse 93, blood pressure 128/89, respirations 18, and saturation 93% on room air. GENERAL: The patient is somnolent. He wakes up comfortably with some gentle stimulation. HEENT: Normocephalic, atraumatic. Sclerae white. Conjunctivae pink. Oral mucosa is moist without lesions. LUNGS: Decent air entry. No prolonged expiratory phase or wheezing is appreciated. HEART: Normal rate, regular. ABDOMEN: Soft, nontender, nondistended. Bowel sounds are positive. MUSCULOSKELETAL: No cyanosis or clubbing. There is no pitting in the bilateral lower extremities. NEUROLOGIC: Grossly nonfocal. LABORATORY DATA: WBC 6.4, hemoglobin 9.8, platelets 155,000, rebounding beautifully. Sodium 132, potassium 3.0, bicarb 21, anion gap 17, creatinine 0.69. ASSESSMENT: 1. Delirium tremens. 2. Seizure secondary to withdrawal from alcohol. 3. Atrial fibrillation with rapid ventricular response, currently sinus rhythm. 4. Hyponatremia. DISCUSSION AND PLAN: The patient will need to remain in the ICU until his mentation improves a little bit. He does not require any p.r.n. doses of Ativan. We will give him more potassium. He is taking very poor p.o. As such, we will continue IV hydration. Pulmonary Critical Care will continue to follow along. Job ID: [id number]
[2018-10-21] MEDS ORDERED: Potassium Chloride 40 MEQ in Sodium Chloride 0.9% 250 ML 250 ML IVPB SCH ×2 (12:30→13:15)
--- NOTE | 2018-10-21 13:28 | PDOC.PN ---
- Subjective Encounter Start Date: 10/21/18 Encounter Start Time: 13:27 Subjective: Seen and examined still not fully with it - Objective Resuscitation Status - Order Detail: 10/15/18 11:53 Resuscitation Status Routine Resuscitation Status: FULL: Full Resuscitation Vital Signs & Weight: Vital Signs (12 hours) Temp Pulse Resp BP BP Pulse Ox 10/21/18 08:00 128/89 10/21/18 07:54 98.9 F 93 18 128/89 93 L 10/21/18 04:00 98.5 F 120 H 22 H 133/90 133/90 100 Weight Admit Weight 175 lb 0.47 oz Weight 164 lb 4 oz I&O: 10/20/18 10/21/18 10/22/18 06:59 06:59 06:59 Intake Total 2450 1920 Output Total 450 Balance 2450 1470 Result Diagrams: 10/21/18 04:28 10/21/18 04:28 Phys Exam - Physical Examination Constitutional: NAD HEENT: PERRLA, moist MMs, sclera anicteric, TM's clear Neck: no nodes, no JVD, supple, full ROM Respiratory: no wheezing, no rales, no rhonchi, clear to auscultation bilateral Cardiovascular: RRR, no significant murmur, no rub Gastrointestinal: soft, non-tender, no distention, positive bowel sounds Dx/Plan (1) Alcohol withdrawal Code(s): F10.239 - ALCOHOL DEPENDENCE WITH WITHDRAWAL, UNSPECIFIED Status: Acute Qualifiers: Complication of substance-induced condition: with delirium Qualified Code(s ): F10.231 - Alcohol dependence with withdrawal delirium Comment: and seizures (2) Anemia Code(s): D64.9 - ANEMIA, UNSPECIFIED Status: Acute Comment: s/p 2 units PRBC this admission (3) Atrial fibrillation Code(s): I48.91 - UNSPECIFIED ATRIAL FIBRILLATION Status: Acute Comment: with RVR (4) Folate deficiency anemia Code(s): D52.9 - FOLATE DEFICIENCY ANEMIA, UNSPECIFIED Status: Acute (5) Hypokalemia Code(s): E87.6 - HYPOKALEMIA Status: Acute (6) Hypomagnesemia Code(s): E83.42 - HYPOMAGNESEMIA Status: Acute (7) Iron deficiency Code(s): E61.1 - IRON DEFICIENCY Status: Acute (8) Alcohol abuse Code(s): F10.10 - ALCOHOL ABUSE, UNCOMPLICATED Status: Chronic (9) Hypokalemia Code(s): E87.6 - HYPOKALEMIA Status: Acute - Plan plan discussed w/ family, PT/OT Replete potassium -: Rehydrate -: Counselling * .
[2018-10-22 04:38] LABS: Phosphorus 3.7 mg/dL (2.3-4.7)
[2018-10-22 04:40] LABS: Anion Gap 14 mmol/L (10-20); BUN (Urea Nitrogen) 6 mg/dL (8.4-25.7); Calc. Creatinine Clearance 138 mL/min (70-130); Calcium 9.4 mg/dL (7.8-10.44); Carbon Dioxide 22 mmol/L (22-29); Chloride 99 mmol/L (98-107); Estimated GFR-MDRD Greater than 90; Glucose 108 mg/dL (70-105); Magnesium 1.4 mg/dL (1.6-2.6); Potassium 3.2 mmol/L (3.5-5.1); Sodium 132 mmol/L (136-145)
--- NOTE | 2018-10-22 09:58 | PDOC.PN ---
- Subjective Encounter Start Date: 10/22/18 Encounter Start Time: 09:55 Subjective: confused, no appropriate responce - Objective Resuscitation Status - Order Detail: 10/15/18 11:53 Resuscitation Status Routine Resuscitation Status: FULL: Full Resuscitation MAR Reviewed: Yes Vital Signs & Weight: Vital Signs (12 hours) Temp Pulse Resp BP BP Pulse Ox 10/22/18 07:30 98.4 F 72 20 116/79 99 10/22/18 04:32 98.0 F 78 17 118/77 98 10/22/18 04:00 118/77 10/22/18 00:20 98.6 F 126 H 18 150/103 H 100 10/22/18 00:00 150/103 H Weight Admit Weight 175 lb 0.47 oz Weight 163 lb I&O: 10/21/18 10/22/18 10/23/18 06:59 06:59 06:59 Intake Total 1920 1819 Output Total 450 Balance 1470 1819 Result Diagrams: 10/21/18 04:28 10/22/18 04:10 Phys Exam - Physical Examination Neck: no JVD Respiratory: no wheezing, no rales Cardiovascular: RRR, no significant murmur Gastrointestinal: soft, non-tender, positive bowel sounds Musculoskeletal: no edema Neurological: non-focal Dx/Plan (1) Delirium tremens Code(s): F10.231 - ALCOHOL DEPENDENCE WITH WITHDRAWAL DELIRIUM Status: Acute (2) Atrial fibrillation with rapid ventricular response Code(s): I48.91 - UNSPECIFIED ATRIAL FIBRILLATION Status: Resolved (3) Wernicke encephalopathy Code(s): E51.2 - WERNICKE'S ENCEPHALOPATHY Status: Acute (4) Hypokalemia Code(s): E87.6 - HYPOKALEMIA Status: Acute (5) Hypokalemia Code(s): E87.6 - HYPOKALEMIA Status: Acute (6) Alcohol abuse Code(s): F10.10 - ALCOHOL ABUSE, UNCOMPLICATED Status: Chronic (7) Folic acid deficiency Code(s): E53.8 - DEFICIENCY OF OTHER SPECIFIED B GROUP VITAMINS Status: Chronic - Plan vitamin, electrolyte replacement -: close observation of encephalopathy * .
[2018-10-22] MEDS: Ferrous Sulfate 325 MG TAB PO SCH (10:18)
[2018-10-22] MEDS: Folic Acid 1 MG TAB PO SCH (10:18)
[2018-10-22] MEDS: Cyanocobalamin (Vitamin B-12) 1,000 MCG TAB PO SCH (11:52)
[2018-10-22] MEDS ORDERED: Magnesium Sulfate 4 GM in Sodium Chloride 0.9% 250 ML 250 ML IVPB SCH (12:30)
--- NOTE | 2018-10-22 12:34 | PRG ---
DATE OF SERVICE: 10/22/2018 SERVICE: Pulmonary Medicine. INTERVAL HISTORY: The patient is doing okay from a mentation standpoint. It is actually the best that I have ever seen him. That being said, he ended up getting 7 doses of Ativan in the last 24 hours. He does not have any other complaints. He did not have any overnight events. PHYSICAL EXAMINATION: VITAL SIGNS: Afebrile, pulse 100, blood pressure 114/82, respirations 20, and saturation 95% on room air. GENERAL: The patient is awake and alert, in no apparent distress. LUNGS: Excellent air entry. There is no prolonged expiratory phase or wheezing. HEART: Normal rate and regular. ABDOMEN: Soft, nontender, and nondistended. Bowel sounds are positive. MUSCULOSKELETAL: No cyanosis or clubbing. There is no pitting in the bilateral lower extremities. NEUROLOGIC: Grossly nonfocal. He is following commands today. He is stuck out of his tongue. He is moving all 4 extremities on command. LABORATORY DATA: Sodium 132, potassium 3.2, magnesium 1.4, phosphorus 3.7. Basic metabolic profile is otherwise unremarkable. ASSESSMENT: 1. Delirium tremens, improving. 2. Seizure secondary to withdrawal from alcohol. 3. Atrial fibrillation, currently sinus rhythm. 4. Hyponatremia. 5. Hypokalemia. 6. Hypomagnesemia. DISCUSSION AND PLAN: I once again replace the potassium and magnesium. IV fluids will be interrupted, it is now more fully tolerating p.o. He is stable for transition to the medical unit. Pulmonary/Critical Care will continue to follow along while he remains inhouse. Job ID: [id number]
[2018-10-22] MEDS: Lorazepam 1 MG TAB PO SCH ×2 (13:02→20:58)
[2018-10-22] MEDS: Potassium Chloride 20 MEQ TAB PO SCH ×2 (13:03→20:56)
[2018-10-23] MEDS: Lorazepam 1 MG TAB PO SCH ×4 (01:03→20:14)
--- NOTE | 2018-10-23 10:15 | PDOC.PN ---
- Subjective Encounter Start Date: 10/23/18 Encounter Start Time: 10:14 Subjective: improved mental status - Objective Resuscitation Status - Order Detail: 10/15/18 11:53 Resuscitation Status Routine Resuscitation Status: FULL: Full Resuscitation MAR Reviewed: Yes Vital Signs & Weight: Vital Signs (12 hours) Temp Pulse Resp BP BP Pulse Ox 10/23/18 07:22 98.0 F 89 20 115/77 97 10/23/18 04:20 97.5 F L 77 17 96/67 100 10/23/18 04:00 96/67 10/23/18 01:04 98.7 F 76 16 98/68 99 10/23/18 00:00 98/68 Weight Admit Weight 175 lb 0.47 oz Weight 162 lb 1.6 oz I&O: 10/22/18 10/23/18 10/24/18 06:59 06:59 06:59 Intake Total 1819 1570 Balance 1819 1570 Result Diagrams: 10/21/18 04:28 10/22/18 04:10 Phys Exam - Physical Examination Neck: no JVD Respiratory: clear to auscultation bilateral Cardiovascular: RRR, no significant murmur Gastrointestinal: soft, positive bowel sounds Musculoskeletal: no edema Dx/Plan (1) Delirium tremens Code(s): F10.231 - ALCOHOL DEPENDENCE WITH WITHDRAWAL DELIRIUM Status: Acute (2) Atrial fibrillation with rapid ventricular response Code(s): I48.91 - UNSPECIFIED ATRIAL FIBRILLATION Status: Resolved (3) Wernicke encephalopathy Code(s): E51.2 - WERNICKE'S ENCEPHALOPATHY Status: Acute (4) Hypokalemia Code(s): E87.6 - HYPOKALEMIA Status: Acute (5) Hypokalemia Code(s): E87.6 - HYPOKALEMIA Status: Acute (6) Alcohol abuse Code(s): F10.10 - ALCOHOL ABUSE, UNCOMPLICATED Status: Chronic (7) Folic acid deficiency Code(s): E53.8 - DEFICIENCY OF OTHER SPECIFIED B GROUP VITAMINS Status: Chronic - Plan cont improvement, cont vitamins, prn antianxiety, electolyte repla * .
--- NOTE | 2018-10-23 10:17 | PRG ---
DATE OF SERVICE: 10/23/2018 SERVICE: Pulmonary Medicine INTERVAL HISTORY: The patient is doing fine from a respiratory standpoint. Breathing comfortably. His mentation is much improved. He is communicating with his family, looking through his wallet, and he has been able to tolerate p.o. Two of his p.r.n. doses of Ativan were held yesterday. He got an additional 2 units of p.r.n. medication. Otherwise, there has been no interval change to his condition. He seems to be defervescing very nicely. PHYSICAL EXAMINATION: VITAL SIGNS: Afebrile, pulse 89, respirations 20, saturation 97% on room air and blood pressure 115/77. HEENT: Normocephalic and atraumatic. Sclerae white. Conjunctivae pink. Oral mucosa is moist without lesions. LUNGS: Excellent air entry. There is no prolonged expiratory phase or wheezing present. HEART: Normal rate, regular. ABDOMEN: Soft, nontender, and nondistended. Bowel sounds are positive. MUSCULOSKELETAL: No cyanosis or clubbing. No pitting in the bilateral lower extremities. NEUROLOGIC: Grossly nonfocal. ASSESSMENT: 1. Delirium tremens, improving. 2. Seizure associated with withdrawal from alcohol. 3. Atrial fibrillation, returned to sinus rhythm x4 days. 4. Hyponatremia, hypokalemia, hypomagnesemia, likely resolved. DISCUSSION AND PLAN: The patient will be transitioned out of the ICU to the medical unit. We will continue the Ativan taper. I will repeat laboratories tomorrow morning. Pulmonary will continue to follow for now. Physical Therapy consultation will be initiated to see if we can improve on his strength through time. Job ID: [id number]
[2018-10-23] MEDS: Cyanocobalamin (Vitamin B-12) 1,000 MCG TAB PO SCH (10:24)
[2018-10-23] MEDS: Ferrous Sulfate 325 MG TAB PO SCH (10:25)
[2018-10-23] MEDS: Folic Acid 1 MG TAB PO SCH (10:27)
[2018-10-23] MEDS: Potassium Chloride 20 MEQ TAB PO SCH (10:28)
[2018-10-23 12:12] VITALS: BMI 28.7
[2018-10-24] MEDS: Lorazepam 2 MG/ML VIAL SLOW IVP PRN ×4 (01:01→16:53)
[2018-10-24] MEDS ORDERED: Ziprasidone 20 MG VIAL IM PRN (02:01)
[2018-10-24] MEDS ORDERED: Sterile Water 10 ML VIAL FS PRN (02:01)
[2018-10-24 07:11] LABS: Hemoglobin 9.3 g/dL (14.0-18.0); Mean Corpuscular HGB CONC 29.7 g/dL (32.0-36.0); Mean Corpuscular Hemoglobin 22.6 pg (27.0-31.0); Mean Platelet Volume 11.5 fL (7.4-10.4); Platelet Count 263 thou/uL (130-400); Red Blood Cell (RBC) Count 4.12 mill/uL (4.70-6.10); White Blood Cell (WBC) Count 5.2 thou/uL (4.8-10.8)
[2018-10-24 07:14] LABS: Phosphorus 4.4 mg/dL (2.3-4.7)
[2018-10-24 07:16] LABS: Anion Gap 13 mmol/L (10-20); BUN (Urea Nitrogen) 7 mg/dL (8.4-25.7); Calc. Creatinine Clearance 118 mL/min (70-130); Calcium 9.6 mg/dL (7.8-10.44); Carbon Dioxide 22 mmol/L (22-29); Chloride 101 mmol/L (98-107); Estimated GFR-MDRD Greater than 90; Glucose 100 mg/dL (70-105); Magnesium 1.7 mg/dL (1.6-2.6); Potassium 3.3 mmol/L (3.5-5.1); Sodium 133 mmol/L (136-145)
[2018-10-24 08:44] LABS: Band 6 % (5-11); Eosinophils 2 % (0-10); Hypochromia MODERATE=16-30 cells (100X) (0-5/hpf); Lymphocytes 17 % (21-51); MDiff Complete? YES; Microcytosis SLIGHT = 6-15 cells (100X) (0-5/hpf); Monocytes 18 % (0-10); Neutrophil 55 % (42-75); Polychromasia SLIGHT = 2-3 cells (100X) (0-2/hpf)
[2018-10-24] MEDS ORDERED: Magnesium 2 GM/50 ML 2 GM in Premix Bag 1 BAG IVPB SCH (09:00)
[2018-10-24] MEDS: Cyanocobalamin (Vitamin B-12) 1,000 MCG TAB PO SCH (09:42)
[2018-10-24] MEDS: Lorazepam 1 MG TAB PO SCH ×2 (09:42→19:32)
[2018-10-24] MEDS: Folic Acid 1 MG TAB PO SCH (09:43)
[2018-10-24] MEDS: Potassium Chloride 20 MEQ TAB PO SCH ×3 (09:43→12:59)
[2018-10-24] MEDS: Ferrous Sulfate 325 MG TAB PO SCH (10:28)
--- NOTE | 2018-10-24 11:24 | PDOC.PN ---
- Subjective Encounter Start Date: 10/24/18 Encounter Start Time: 11:22 Subjective: oriented to person only - Objective Resuscitation Status - Order Detail: 10/15/18 11:53 Resuscitation Status Routine Resuscitation Status: FULL: Full Resuscitation MAR Reviewed: Yes Vital Signs & Weight: Vital Signs (12 hours) Temp Pulse Resp BP BP Pulse Ox 10/24/18 11:13 97.5 F L 87 16 95/63 96 10/24/18 08:00 97.9 F 78 18 91/59 L 93 L 10/24/18 00:30 121/64 10/24/18 00:00 98.1 F 87 20 121/64 95 Weight Admit Weight 175 lb 0.47 oz Weight 162 lb 1.6 oz I&O: 10/23/18 10/24/18 10/25/18 06:59 06:59 06:59 Intake Total 1570 1380 Output Total 225 Balance 1570 1155 Result Diagrams: 10/24/18 06:36 10/24/18 06:36 Phys Exam - Physical Examination Neck: no JVD Respiratory: clear to auscultation bilateral Cardiovascular: RRR, no significant murmur Gastrointestinal: soft, non-tender, positive bowel sounds Musculoskeletal: no edema Dx/Plan (1) Delirium tremens Code(s): F10.231 - ALCOHOL DEPENDENCE WITH WITHDRAWAL DELIRIUM Status: Acute (2) Atrial fibrillation with rapid ventricular response Code(s): I48.91 - UNSPECIFIED ATRIAL FIBRILLATION Status: Resolved (3) Wernicke encephalopathy Code(s): E51.2 - WERNICKE'S ENCEPHALOPATHY Status: Acute (4) Hypokalemia Code(s): E87.6 - HYPOKALEMIA Status: Acute (5) Hypokalemia Code(s): E87.6 - HYPOKALEMIA Status: Acute (6) Alcohol abuse Code(s): F10.10 - ALCOHOL ABUSE, UNCOMPLICATED Status: Chronic (7) Folic acid deficiency Code(s): E53.8 - DEFICIENCY OF OTHER SPECIFIED B GROUP VITAMINS Status: Chronic - Plan suspect chronic wernicks encephalopathy -: cont vitamins, etc -: placement-CM consult * .
--- NOTE | 2018-10-24 12:54 | PRG ---
DATE OF SERVICE: 10/24/2018 SERVICE: Pulmonary Medicine. INTERVAL HISTORY: The patient is doing really well from a respiratory standpoint. Denies any current chest pain, fevers, or chills. There has been no interval change to his condition. Mentation campuzano, he is about stable, if not, a little bit worse than yesterday. He required two doses of p.r.n. Ativan last night. PHYSICAL EXAMINATION: VITAL SIGNS: Afebrile, pulse 92, blood pressure 127/67, respirations 23, and saturation 96% on room air. GENERAL: The patient is awake and alert, in no apparent distress. LUNGS: Excellent air entry without prolonged expiratory phase, wheezing, rhonchi or crackles present. HEART: Normal rate, regular. ABDOMEN: Soft, nontender, and nondistended. Bowel sounds are positive. MUSCULOSKELETAL: No cyanosis or clubbing. No pitting in the bilateral lower extremities. NEUROLOGIC: Grossly nonfocal. LABORATORY DATA: WBC 5.2, hemoglobin 9.3, platelets 263,000 and beautifully rebounding. Band count remains low. Sodium gently trending upward to 133, potassium 3.3. Basic metabolic profile, magnesium and phosphorous fall within normal limits. ASSESSMENT: 1. Delirium tremens. 2. Seizure secondary to withdrawal from alcohol. 3. Atrial fibrillation, returned to sinus rhythm. 4. Hyponatremia. DISCUSSION AND PLAN: I will give him 80 mEq of potassium, 2 g of magnesium. We will continue our mobilization efforts through time and minimize most interventions. He is continuing his Ativan taper. He will continue to get p.r.n. Ativan through time. His requirements for benzodiazepines have dramatically improved during the course of this hospital stay. He will likely be a candidate for transition home in 24 to 48 hours, but we are still waiting on his strength and mentation to improve a touch more. Hopefully, the family will be able to keep him away from alcohol after he leaves the hospital. Job ID: [id number]
[2018-10-25] MEDS: Haloperidol Lactate 5 MG/ML VIAL IM PRN (00:46)
--- NOTE | 2018-10-25 09:49 | PRG ---
DATE OF SERVICE: 10/25/2018 SERVICE: Pulmonary Medicine. INTERVAL HISTORY: The patient is doing okay from mentation standpoint. He got a dose of Haldol last night. He also got 2 doses of p.r.n. Ativan yesterday. Otherwise, there has been no interval change to his condition. PHYSICAL EXAMINATION: VITAL SIGNS: Afebrile, pulse 90, blood pressure 98/60, respirations 18, and saturation 95% on room air. GENERAL: The patient is awake and alert, in no apparent distress. LUNGS: Excellent air entry with no prolonged expiratory phase, wheezing, rhonchi, or crackles. HEART: Normal rate, regular. ABDOMEN: Soft, nontender, and nondistended. Bowel sounds are positive. MUSCULOSKELETAL: No cyanosis or clubbing. There is no pitting in the bilateral lower extremities. NEUROLOGIC: Grossly nonfocal. ASSESSMENT: 1. Delirium tremens, stable. 2. Seizure, secondary to withdrawal from alcohol. 3. Atrial fibrillation, currently sinus rhythm. 4. Hyponatremia, slowly improving. 5. Pancytopenia, resolving. 6. Wernicke encephalopathy, suspected. DISCUSSION AND PLAN: The patient is once again stable hemodynamically for transition out of the hospital. Mentation is a different issue. As soon as he has a safe care facility to transition to, he can leave the hospital. Pulmonary will continue to follow, intermittently during this hospital stay. Please call. I would prefer the use of Ativan for agitation as he still demonstrates some degree of withdrawal features. These are profoundly improved compared to when he came into the hospital. Job ID: [id number] [facility]
--- NOTE | 2018-10-25 11:55 | PDOC.PN ---
- Subjective Encounter Start Date: 10/25/18 Encounter Start Time: 11:53 Subjective: encephalopathic - Objective Resuscitation Status - Order Detail: 10/15/18 11:53 Resuscitation Status Routine Resuscitation Status: FULL: Full Resuscitation MAR Reviewed: Yes Vital Signs & Weight: Vital Signs (12 hours) Temp Pulse Resp BP BP Pulse Ox 10/25/18 11:04 98.2 F 85 18 105/70 96 10/25/18 08:00 97.6 F 85 20 124/64 97 10/25/18 04:00 97.8 F 90 18 98/60 98/60 95 Weight Admit Weight 175 lb 0.47 oz Weight 162 lb 1.6 oz I&O: 10/24/18 10/25/18 10/26/18 06:59 06:59 06:59 Intake Total 1380 850 Output Total 225 Balance 1155 850 Result Diagrams: 10/24/18 06:36 10/24/18 06:36 Phys Exam - Physical Examination Neck: no JVD Respiratory: clear to auscultation bilateral Cardiovascular: RRR, no significant murmur Gastrointestinal: soft, non-tender, positive bowel sounds Musculoskeletal: no edema Dx/Plan (1) Delirium tremens Code(s): F10.231 - ALCOHOL DEPENDENCE WITH WITHDRAWAL DELIRIUM Status: Acute (2) Atrial fibrillation with rapid ventricular response Code(s): I48.91 - UNSPECIFIED ATRIAL FIBRILLATION Status: Resolved (3) Wernicke encephalopathy Code(s): E51.2 - WERNICKE'S ENCEPHALOPATHY Status: Acute (4) Hypokalemia Code(s): E87.6 - HYPOKALEMIA Status: Acute (5) Hypokalemia Code(s): E87.6 - HYPOKALEMIA Status: Acute (6) Alcohol abuse Code(s): F10.10 - ALCOHOL ABUSE, UNCOMPLICATED Status: Chronic (7) Folic acid deficiency Code(s): E53.8 - DEFICIENCY OF OTHER SPECIFIED B GROUP VITAMINS Status: Chronic - Plan stable medically. working with family and CM on placement * .
[2018-10-25] MEDS: Potassium Chloride 20 MEQ TAB PO SCH (14:52)
[2018-10-25] MEDS: Cyanocobalamin (Vitamin B-12) 1,000 MCG TAB PO SCH (14:53)
[2018-10-25] MEDS: Folic Acid 1 MG TAB PO SCH (14:54)
[2018-10-25] MEDS: Ferrous Sulfate 325 MG TAB PO SCH (14:54)
[2018-10-26] MEDS: Lorazepam 2 MG/ML VIAL SLOW IVP PRN (01:09)
[2018-10-26] MEDS: Folic Acid 1 MG TAB PO SCH (08:15)
[2018-10-26] MEDS: Cyanocobalamin (Vitamin B-12) 1,000 MCG TAB PO SCH (08:16)
[2018-10-26] MEDS: Ferrous Sulfate 325 MG TAB PO SCH (08:16)
[2018-10-26] MEDS: Potassium Chloride 20 MEQ TAB PO SCH (08:16)
[2018-10-26 09:07] LABS: ALT (SGPT) 27 U/L (8-55); AST (SGOT) 38 U/L (5-34); Albumin 3.2 g/dL (3.5-5.0); Alkaline Phosphatase 83 U/L (40-150); Anion Gap 14 mmol/L (10-20); BUN (Urea Nitrogen) 11 mg/dL (8.4-25.7); Bilirubin, Total 0.7 mg/dL (0.2-1.2); Calc. Creatinine Clearance 113 mL/min (70-130); Calcium 9.7 mg/dL (7.8-10.44); Carbon Dioxide 24 mmol/L (22-29); Chloride 99 mmol/L (98-107); Estimated GFR-MDRD Greater than 90; Glucose 86 mg/dL (70-105); Magnesium 1.7 mg/dL (1.6-2.6); Phosphorus 4.8 mg/dL (2.3-4.7); Potassium 3.6 mmol/L (3.5-5.1); Protein, Total 8.2 g/dL (6.0-8.3); Sodium 133 mmol/L (136-145)
[2018-10-26 11:08] LABS: #Basophils 0.1 thou/uL (0.0-0.2); #Eosinphils 0.1 thou/uL (0.0-0.7); #Lymphocytes 1.2 thou/uL (1.20-3.40); #Monocytes 0.8 thou/uL (0.11-0.59); #Neutrophils 4.6 thou/uL (1.40-6.50); %Basophils 1.1 % (0.0-1.0); %Eosinophils 1.2 % (0.0-10.0); %Monocytes 12.2 % (0.0-10.0); %Neutrophils 67.5 % (42.0-75.0); Hemoglobin 9.9 g/dL (14.0-18.0); Hypochromia MODERATE=16-30 cells (100X) (0-5/hpf); MDiff Complete? YES; Mean Corpuscular HGB CONC 29.7 g/dL (32.0-36.0); Mean Corpuscular Hemoglobin 22.4 pg (27.0-31.0); Mean Corpuscular Volume 75.6 fL (78.0-98.0); Mean Platelet Volume 10.7 fL (7.4-10.4); Microcytosis SLIGHT = 6-15 cells (100X) (0-5/hpf); Platelet Count 356 thou/uL (130-400); Platelet Morphology Comment Appears Adequate; RBC Distribution Width 23.6 % (11.5-14.5); Red Blood Cell (RBC) Count 4.42 mill/uL (4.70-6.10); White Blood Cell (WBC) Count 6.8 thou/uL (4.8-10.8)
--- NOTE | 2018-10-26 15:09 | PDOC.PN ---
- Subjective Encounter Start Date: 10/26/18 (f/u alcohol withdrawal) Encounter Start Time: 15:07 Subjective: Pt's reports he is doing better today - more calm/awake/ responsive -: no concerns overnight - Objective Resuscitation Status - Order Detail: 10/15/18 11:53 Resuscitation Status Routine Resuscitation Status: FULL: Full Resuscitation Vital Signs & Weight: Vital Signs (12 hours) Temp Pulse Resp BP Pulse Ox 10/26/18 08:00 95 10/26/18 07:57 98.5 F 83 18 97/65 95 Weight Admit Weight 175 lb 0.47 oz Weight 162 lb 1.6 oz I&O: 10/25/18 10/26/18 10/27/18 06:59 06:59 06:59 Intake Total 850 800 600 Balance 850 800 600 Result Diagrams: 10/26/18 08:27 10/26/18 07:07 Additional Labs: Accuchecks 10/26/18 11:37 POC Glucose 106 Phys Exam - Physical Examination Constitutional: NAD Respiratory: no wheezing, no rales, no rhonchi Cardiovascular: RRR, no significant murmur Gastrointestinal: soft, non-tender, no distention, positive bowel sounds Musculoskeletal: no edema Dx/Plan (1) Hyponatremia Code(s): E87.1 - HYPO-OSMOLALITY AND HYPONATREMIA Status: Acute (2) Alcohol withdrawal Code(s): F10.239 - ALCOHOL DEPENDENCE WITH WITHDRAWAL, UNSPECIFIED Status: Chronic Qualifiers: Complication of substance-induced condition: with delirium Qualified Code(s ): F10.231 - Alcohol dependence with withdrawal delirium Comment: and seizures (3) Delirium tremens Code(s): F10.231 - ALCOHOL DEPENDENCE WITH WITHDRAWAL DELIRIUM Status: Acute (4) Wernicke encephalopathy Code(s): E51.2 - WERNICKE'S ENCEPHALOPATHY Status: Acute (5) Alcohol abuse Code(s): F10.10 - ALCOHOL ABUSE, UNCOMPLICATED Status: Chronic - Plan * No change to plan of care = continue vitamin supplementation * hyponatremia stable * anemia stable * continue pt/ot and discharge planning for placement/rehab/strengthening * * dvt prophy - lovenox * gi propphy - not indicated * code status full * * reviewed no change to plan of care with patient's , no questions or further needs at end of eval.
[2018-10-27] MEDS: Potassium Chloride 20 MEQ TAB PO SCH (08:40)
[2018-10-27] MEDS: Folic Acid 1 MG TAB PO SCH (08:40)
[2018-10-27] MEDS: Ferrous Sulfate 325 MG TAB PO SCH (08:41)
[2018-10-27] MEDS: Cyanocobalamin (Vitamin B-12) 1,000 MCG TAB PO SCH (08:41)
--- NOTE | 2018-10-27 11:47 | PRG ---
DATE OF SERVICE: 10/27/2018 SUBJECTIVE: The patient is doing reasonably well, has no complaints except he is having some hallucinations. OBJECTIVE: VITAL SIGNS: Temperature 98.3, pulse 94, respirations 18, O2 saturation 94%, blood pressure 96/64. HEENT: Unremarkable. NECK: No adenopathy, JVD, or bruits. LUNGS: Clear. LABORATORY DATA: No labs were done today. ASSESSMENT: 1. Encephalopathy. 2. Status post delirium tremens. 3. Status post seizure. PLAN: He is currently slowly improving. He is receiving antipsychotics and anxiolytics as needed. He is on thiamine. It will just take time for him to improve. Job ID: [id number]
--- NOTE | 2018-10-27 14:13 | PDOC.PN ---
- Subjective Encounter Start Date: 10/27/18 (f/u) Encounter Start Time: 14:13 Subjective: Pt c/o leg pain/foot pain on left side around area of bruising -: denies any other concerns. - Objective Resuscitation Status - Order Detail: 10/15/18 11:53 Resuscitation Status Routine Resuscitation Status: FULL: Full Resuscitation Vital Signs & Weight: Vital Signs (12 hours) Temp Pulse Resp BP BP BP Pulse Ox 10/27/18 13:04 98.6 F 80 16 111/79 97 10/27/18 12:00 111/79 10/27/18 08:59 98.3 F 94 18 96/64 94 L 10/27/18 08:00 97.9 F 97 16 114/74 94 L Weight Admit Weight 175 lb 0.47 oz Weight 162 lb 1.6 oz I&O: 10/26/18 10/27/18 10/28/18 06:59 06:59 06:59 Intake Total 800 1190 Balance 800 1190 Result Diagrams: 10/26/18 08:27 10/26/18 07:07 Additional Labs: Accuchecks 10/26/18 16:08 POC Glucose 119 H Phys Exam - Physical Examination Constitutional: NAD Respiratory: no wheezing, no rales, no rhonchi, clear to auscultation bilateral Cardiovascular: RRR, no significant murmur Gastrointestinal: soft, non-tender, no distention, positive bowel sounds Musculoskeletal: no edema Deviation from normal: ecchymosis along lower left lateral leg. ttp along bilateral -: malleoli without palpable abnormality Dx/Plan (1) Hyponatremia Code(s): E87.1 - HYPO-OSMOLALITY AND HYPONATREMIA Status: Acute (2) Alcohol withdrawal Code(s): F10.239 - ALCOHOL DEPENDENCE WITH WITHDRAWAL, UNSPECIFIED Status: Chronic Qualifiers: Complication of substance-induced condition: with delirium Qualified Code(s ): F10.231 - Alcohol dependence with withdrawal delirium (3) Delirium tremens Code(s): F10.231 - ALCOHOL DEPENDENCE WITH WITHDRAWAL DELIRIUM Status: Acute (4) Wernicke encephalopathy Code(s): E51.2 - WERNICKE'S ENCEPHALOPATHY Status: Acute (5) Alcohol abuse Code(s): F10.10 - ALCOHOL ABUSE, UNCOMPLICATED Status: Chronic (6) Left fibular fracture Code(s): S82.402A - UNSP FRACTURE OF SHAFT OF LEFT FIBULA, INIT FOR CLOS FX Status: Acute Qualifiers: Encounter type: initial encounter Fibula location: distal Fracture type: closed Fracture morphology: unspecified fracture morphology Qualified Code(s ): S82.832A - Other fracture of upper and lower end of left fibula, initial encounter for closed fracture - Plan * * No change to plan of care = continue vitamin supplementation * hyponatremia stable * anemia stable * continue pt/ot and discharge planning for placement/rehab/strengthening\ * xray left ankle given falls/ecchymosis * * dvt prophy - lovenox * gi propphy - not indicated * code status full * * reviewed no change to plan of care with patient's (she reports they are ), no questions or further needs at end of eval.. * ready for placement - do not think pt is able chemo discharged safely back to the environment he came from - she reports he was living with a group of men. * 18:00 - reviewed XR and pt with slightly displaced fibular fx - ortho consult for tomorrow, requested walking boot tonight. Discussed with patient, but he does not seem to understand. Will need to discuss with his tomorrow.
--- NOTE | 2018-10-27 18:35 | RAD ---
RADIOGRAPH LEFT ANKLE THREE VIEWS: Date: 10-27-18 Time: 2:19 p.m. History: 58-year-old male with traumatic ankle pain after multiple falls. Comparison: None. FINDINGS: There is a spiral fracture of the distal fibular metadiaphysis, superior to the level of the ankle mo rtise. IMPRESSION: Mildly displaced spiral fracture of distal fibular metadiaphysis, either Verma class B or C; Favor C. POS: ELSI
[2018-10-27] MEDS: Haloperidol Lactate 5 MG/ML VIAL IM PRN (21:12)
[2018-10-27] MEDS: Lorazepam 2 MG/ML VIAL SLOW IVP PRN (21:12)
[2018-10-28] MEDS: Folic Acid 1 MG TAB PO SCH (08:30)
[2018-10-28] MEDS: Ferrous Sulfate 325 MG TAB PO SCH (08:30)
[2018-10-28] MEDS: Cyanocobalamin (Vitamin B-12) 1,000 MCG TAB PO SCH (08:30)
[2018-10-28] MEDS: Potassium Chloride 20 MEQ TAB PO SCH (08:30)
--- NOTE | 2018-10-28 09:46 | CON ---
DATE OF CONSULTATION: 10/28/2018 CHIEF COMPLAINT: Left ankle pain. HISTORY OF PRESENT ILLNESS: Mr. Karthikeyan Najera is a 58-year-old alcoholic male. He stopped drinking alcohol prior to his admission and began having delirium tremens type signs. He has been in the hospital for approximately 13 days at this point. He had syncopal events prior to his admission and fell. The patient also has been found to have atrial fibrillation with RVR. I was consulted regarding his left ankle. He has been having increasing ankle pain, swelling, and ecchymosis. He has been ambulating on his ankle, but with discomfort. X-ray was obtained yesterday, which demonstrated a fibular fracture. PAST MEDICAL HISTORY: Alcoholism, atrial fibrillation with rapid ventricular response, history of seizure disorder. PAST SURGICAL HISTORY: None. SOCIAL HISTORY: The patient has a long history of alcohol abuse. He denies drug use or tobacco use. ALLERGIES: NO KNOWN DRUG ALLERGIES. FAMILY MEDICAL HISTORY: Noncontributory. REVIEW OF SYSTEMS: Positive for left ankle pain with weightbearing. Otherwise, negative 10 point review of systems. DIAGNOSTIC DATA: X-rays of the left ankle demonstrate a minimally displaced distal fibular fracture. Ankle mortise is intact without any significant widening. PHYSICAL EXAMINATION: VITAL SIGNS: Temperature is 98.2, pulse is 89, respiratory rate 19, oxygen saturation 96%, and blood pressure is 93/63. GENERAL: He is alert and oriented. No apparent distress. RESPIRATORY: Breathing comfortably. ABDOMEN: Soft, nontender, and nondistended. MUSCULOSKELETAL: The patient's left leg has tenderness to palpation of the distal fibula. He has faint ecchymosis. He has swelling. He is able to flex and extend the foot and ankle. IMPRESSION: Left distal fibular fracture in an alcoholic male with atrial fibrillation. PLAN: At this point, the patient can be treated nonoperatively. He can go into a walking boot. He can weight bear as tolerated on the left ankle in the boot. He can remove the boot for hygiene and for gentle range of motion. Follow up in the clinic in 2 to 3 weeks for repeat x-rays. Orthopedics will sign off. Job ID: [id number]
--- NOTE | 2018-10-28 10:12 | PDOC.PN ---
- Subjective Encounter Start Date: 10/28/18 Encounter Start Time: 11:30 Subjective: Patient doing well. Still with some hallucinations but family states he had -: started having this before his most recent EtOH withdrawl. Family will -: be ready to take him home tomorrow morning. - Objective Resuscitation Status - Order Detail: 10/15/18 11:53 Resuscitation Status Routine Resuscitation Status: FULL: Full Resuscitation MAR Reviewed: Yes Vital Signs & Weight: Vital Signs (12 hours) Temp Pulse Resp BP BP Pulse Ox 10/28/18 07:27 98.2 F 89 19 93/63 96 10/28/18 03:30 98.8 F 78 18 102/70 94 L Weight Admit Weight 175 lb 0.47 oz Weight 162 lb 1.6 oz I&O: 10/27/18 10/28/18 10/29/18 06:59 06:59 06:59 Intake Total 1190 320 Output Total 400 Balance 1190 -80 Result Diagrams: 10/26/18 08:27 10/26/18 07:07 Phys Exam - Physical Examination Constitutional: NAD HEENT: moist MMs Respiratory: no wheezing, no rales, no rhonchi Cardiovascular: RRR, no significant murmur Gastrointestinal: soft, positive bowel sounds Neurological: non-focal, moves all 4 limbs Psychiatric: normal affect Dx/Plan (1) Alcohol withdrawal Code(s): F10.239 - ALCOHOL DEPENDENCE WITH WITHDRAWAL, UNSPECIFIED Status: Chronic Qualifiers: Complication of substance-induced condition: with delirium Qualified Code(s ): F10.231 - Alcohol dependence with withdrawal delirium (2) Delirium tremens Code(s): F10.231 - ALCOHOL DEPENDENCE WITH WITHDRAWAL DELIRIUM Status: Resolved (3) Hyponatremia Code(s): E87.1 - HYPO-OSMOLALITY AND HYPONATREMIA Status: Acute Comment: stable (4) Wernicke encephalopathy Code(s): E51.2 - WERNICKE'S ENCEPHALOPATHY Status: Acute (5) Alcohol abuse Code(s): F10.10 - ALCOHOL ABUSE, UNCOMPLICATED Status: Chronic (6) Left fibular fracture Code(s): S82.402A - UNSP FRACTURE OF SHAFT OF LEFT FIBULA, INIT FOR CLOS FX Status: Acute Qualifiers: Encounter type: initial encounter Fibula location: distal Fracture type: closed Fracture morphology: unspecified fracture morphology Qualified Code(s ): S82.832A - Other fracture of upper and lower end of left fibula, initial encounter for closed fracture - Plan cont current plan of care, PT/OT, renal social worker Discharge planning, home with family tomorrow morning. * . - Discharge Day Encounter end time: 11:40
--- NOTE | 2018-10-28 12:10 | PRG ---
DATE OF SERVICE: 10/28/2018 SERVICE: Pulmonary Medicine. INTERVAL HISTORY: The patient is doing fine from respiratory standpoint. He is not requiring significant doses of Ativan. Denies any current chest pain, fevers, chills, nausea, or vomiting. Otherwise, there has been no interval change to his condition. PHYSICAL EXAMINATION: VITAL SIGNS: Afebrile, pulse 89, blood pressure 113/73, respirations 20, saturation 96% on room air. GENERAL: The patient is awake and alert, in no apparent distress. LUNGS: Decent air entry. There is no prolonged expiratory phase. No wheezing, rhonchi, or crackles appreciated. HEART: Normal rate and regular. ABDOMEN: Soft, nontender, and nondistended. Bowel sounds are positive. MUSCULOSKELETAL: No cyanosis or clubbing. There is no pitting in the bilateral lower extremities. NEUROLOGIC: Grossly nonfocal. IMAGING: Ankle x-ray demonstrates a spiral fracture. ASSESSMENT: 1. Delirium tremens, resolved. 2. Seizure secondary to withdrawal from alcohol. 3. Atrial fibrillation, currently sinus rhythm. 4. Encephalopathy. DISCUSSION AND PLAN: We will continue supportive measures through time. From purely respiratory and metabolic standpoint, the patient is stable for transition out of the hospital. At this point, he has no further requirements for inpatient Pulmonary Critical Care opinion. Please call me if additional questions or concerns. Job ID: [id number]
[2018-10-29] MEDS: Lorazepam 2 MG/ML VIAL SLOW IVP PRN ×2 (02:24→07:12)
[2018-10-29] MEDS: Haloperidol Lactate 5 MG/ML VIAL IM PRN (02:52)
[2018-10-29 07:55] VITALS: BP 107/76; TEMP 99
--- NOTE | 2018-10-29 08:37 | PDOC.PN ---
- Subjective Encounter Start Date: 10/29/18 Encounter Start Time: 09:10 Subjective: Patient had trouble sleeping again last night. Continues to have some -: hallucinations. No changes. Family ready to take home this morning. - Objective Resuscitation Status - Order Detail: 10/15/18 11:53 Resuscitation Status Routine Resuscitation Status: FULL: Full Resuscitation MAR Reviewed: Yes Vital Signs & Weight: Vital Signs (12 hours) Temp Pulse Resp BP BP Pulse Ox 10/29/18 07:50 99 F 110 H 17 107/76 90 L 10/29/18 03:43 98.8 F 110 H 18 141/92 H 95 Weight Admit Weight 175 lb 0.47 oz Weight 162 lb 1.6 oz I&O: 10/28/18 10/29/18 10/30/18 06:59 06:59 06:59 Intake Total 320 320 Output Total 400 840 Balance -80 -520 Result Diagrams: 10/26/18 08:27 10/26/18 07:07 Phys Exam - Physical Examination Constitutional: NAD HEENT: moist MMs Respiratory: no wheezing, no rales, no rhonchi Cardiovascular: RRR, no significant murmur mild tachycardia Gastrointestinal: soft, positive bowel sounds Neurological: non-focal, moves all 4 limbs Psychiatric: normal affect Deviation from normal: Alert, oriented to person and some to situation Dx/Plan (1) Alcohol withdrawal Code(s): F10.239 - ALCOHOL DEPENDENCE WITH WITHDRAWAL, UNSPECIFIED Status: Chronic Qualifiers: Complication of substance-induced condition: with delirium Qualified Code(s ): F10.231 - Alcohol dependence with withdrawal delirium (2) Delirium tremens Code(s): F10.231 - ALCOHOL DEPENDENCE WITH WITHDRAWAL DELIRIUM Status: Resolved (3) Hyponatremia Code(s): E87.1 - HYPO-OSMOLALITY AND HYPONATREMIA Status: Acute Comment: stable (4) Wernicke encephalopathy Code(s): E51.2 - WERNICKE'S ENCEPHALOPATHY Status: Acute (5) Alcohol abuse Code(s): F10.10 - ALCOHOL ABUSE, UNCOMPLICATED Status: Chronic (6) Left fibular fracture Code(s): S82.402A - UNSP FRACTURE OF SHAFT OF LEFT FIBULA, INIT FOR CLOS FX Status: Acute Qualifiers: Encounter type: initial encounter Fibula location: distal Fracture type: closed Fracture morphology: unspecified fracture morphology Qualified Code(s ): S82.832A - Other fracture of upper and lower end of left fibula, initial encounter for closed fracture Comment: boot to left foot before d/c - Plan cont current plan of care 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 Family informed, -: ready to take him home today. Some tachycardia with ambulating, but not s -: severe and likely related to broken ankle. Has boot in place. Will establis -: with PCP once gets to family's house in the [place]. * . - Discharge Day Encounter end time: 09:20
[2018-10-29] MEDS: Cyanocobalamin (Vitamin B-12) 1,000 MCG TAB PO SCH (09:21)
[2018-10-29] MEDS: Potassium Chloride 20 MEQ TAB PO SCH (09:21)
[2018-10-29] MEDS: Ferrous Sulfate 325 MG TAB PO SCH (09:21)
[2018-10-29] MEDS: Folic Acid 1 MG TAB PO SCH (09:21)
--- NOTE | 2018-10-29 20:40 | DIS ---
DATE OF ADMISSION: 10/15/2018 DATE OF DISCHARGE: 10/29/2018 PRIMARY CARE PHYSICIAN: [facility]. REASON FOR ADMISSION: Atrial fibrillation with RVR due to alcohol withdrawal. DIAGNOSES AT DISCHARGE: 1. Chronic alcoholism with alcohol withdrawal syndrome. 2. Wernicke's encephalopathy. 3. Hyponatremia. 4. Left fibular fracture. 5. Paroxysmal atrial fibrillation, now in sinus rhythm. PROCEDURES: Echocardiogram showing ejection fraction of 55% to 60%. No other significant abnormalities. CONSULTATIONS: 1. Pulmonology, Dr. Coronado. 2. Orthopedics, Dr. Nunez. PERTINENT LABORATORY: Hemoglobin 9.9 at discharge, stable during his hospitalization. Sodium 133 at discharge, also stable. SUMMARY OF HOSPITAL COURSE: This is a 58-year-old male, but from his . Heavy alcohol abuser, he lives with some other man in town. He presented to the [place] [facility] room with report of having had some chest discomfort a few days previously and had stopped his alcohol, then he had had multiple passing-out spells and some seizures. The patient was confused, unable to give a history with his presentation. He was found to be in atrial fibrillation with rapid ventricular response and acute alcohol withdrawal syndrome. He was put in the IMCU, required large doses of benzodiazepines to control his withdrawal symptoms. His atrial fibrillation was controlled with diltiazem drip and eventually converted back to normal sinus rhythm, which remained in the rest of his hospitalization. The patient eventually had his withdrawal symptoms controlled and was eventually able to be weaned off most of his benzodiazepines. He did continue to have some confusion and some hallucinations of there being people sitting in the room with him, but had no further tremors or significant vital sign abnormalities. The patient was eventually diagnosed with Wernicke encephalopathy. He was able to converse much more clearly with his family by the time of discharge, but did start complaining of some pain in his left ankle. There was a noted bruise on the lateral side. An x-ray showed uncomplicated fibular fracture. Orthopedics was consulted and they put him in a walking boot. On the day of discharge, the patient was doing well. He had a kind of baseline level of agitation and difficulty sleeping, had a little tachycardia in low 100s with ambulation, but still on regular sinus rhythm. He is willing to go live with his family in the [place]. DISCHARGE MANAGEMENT: Discharged home with family. ACTIVITY: As tolerated with orthopedic walking boot when ambulating. He can take it off to wash when he is taking shower or to do range of motion of the ankle. DIET: Regular diet with Ensure 3 times per day and no more alcohol. FOLLOWUP: Establish with primary care physician once he gets to his family's home. DISCHARGE MEDICATIONS: 1. Vitamin B12 of 1000 mcg daily, 30 tablets dispensed. 2. Ferrous sulfate 325 mg daily, 30 tablets dispensed. 3. Folic acid 1 mg daily, 30 tablets dispensed. 4. Thiamine 100 mg daily, 30 tablets dispensed. Job ID: [id number]
== END 2018-10-29 10:10 | disposition home or self-care (01) | DRG 897 ==
LOC: ERS 08:15 → ERHOLD 09:34 → IMCU/EMU 13:11 → T4-B 10-23 19:51
PROVIDERS: ADMIT Internal Medicine; ATTEND Internal Medicine
DX: F10.231 Alcohol dependence with withdrawal delirium (principal); G40.89 Other seizures; E87.1 Hypo-osmolality and hyponatremia; E51.2 Wernicke's encephalopathy; D61.818 Other pancytopenia; S82.832A Other fracture of upper and lower end of left fibula, initial encounter for closed fracture; I48.0 Paroxysmal atrial fibrillation; Y90.8 Blood alcohol level of 240 mg/100 ml or more; E53.8 Deficiency of other specified B group vitamins; D50.9 Iron deficiency anemia, unspecified; R55 Syncope and collapse; E87.6 Hypokalemia; R07.9 Chest pain, unspecified; E83.42 Hypomagnesemia; W19.XXXA Unspecified fall, initial encounter
CPT/HCPCS: 36415; 36416; 80048; 80053; 80307; 82607; 82728; 82746; 83540; 83550; 83605; 83735; 84100; 84146; 84443; 84484; 85025; 93005; 93306; 96361; 96374; 96376; A4216; C9113; J1200; J1630; J2060; J3411; J3420; J3475; J3480; J3486; J7042; J7050